=== PATIENT | male | born 1970 | race Caucasian/White ===

== ENCOUNTER → 2021-10-06 | Day surgery (SDC) | payer OTHER ==
[~2021-10-06] VITALS: Ht 180.3 cm; Wt 97.1 kg
[~2021-10-06] MED LIST: DICLOFENAC-MIS1 EACH PO; FENOFIBRATE160 MG PO; FERROUS SULFAT325 MG PO; FISH OIL 1,0001 EACH PO; HYDROCODONE-AC1 EAC1 PO; MONTELUKAST SOD10 MG PO; PHENTERMINE H37.5 MG PO; VIAGRA100 MG PO
== END | disposition home or self-care (01) ==
LOC: OR 06:19
DX: G56.03 Carpal tunnel syndrome, bilateral upper limbs (principal); M19.012 Primary osteoarthritis, left shoulder; M75.122 Complete rotator cuff tear or rupture of left shoulder, not specified as traumatic; I10 Essential (primary) hypertension; E78.5 Hyperlipidemia, unspecified; K21.9 Gastro-esophageal reflux disease without esophagitis; F17.210 Nicotine dependence, cigarettes, uncomplicated; Z88.5 Allergy status to narcotic agent; Z79.899 Other long term (current) drug therapy
CPT/HCPCS: J0690; J1100; J2001; J2250; J2405; J2704; J3010